=== PATIENT | female | born 1970 | race Two or more races ===

== ENCOUNTER 2020-02-17 15:51 | Outpatient (CLI) | payer OTHER | END 2020-02-17 16:20 | disposition home or self-care (01) | LOC: OFIC 805 15:51 | PROVIDERS: ATTEND Otolaryngology | DX: H69.81 Other specified disorders of Eustachian tube, right ear (principal); H73.891 Other specified disorders of tympanic membrane, right ear; H91.8X1 Other specified hearing loss, right ear; H93.8X1 Other specified disorders of right ear ==

== ENCOUNTER → 2020-03-30 | Outpatient (CLI) | payer OTHER | END | disposition home or self-care (01) | LOC: OFIC 805 12:29 | PROVIDERS: ATTEND Otolaryngology | DX: H74.8X1 Other specified disorders of right middle ear and mastoid (principal); H69.81 Other specified disorders of Eustachian tube, right ear ==